=== PATIENT | female | born 1985 | race Caucasian/White ===

== ENCOUNTER 2018-03-30 18:46 | Emergency (ER) | payer OTHER ==
[~2018-03-30] VITALS: Ht 175.3 cm; Wt 96.2 kg
[~2018-03-30 18:46] MED LIST: AMOX500C PO
[2018-03-30 20:47] LABS: BILIRUBIN,URINE NEG (NEG); CLARITY,URINE CLOUDY; COLOR,URINE YELLOW; GLUCOSE,URINE NEG (NEG)
[2018-03-30 20:48] LABS: BACTERIA,URINE 0 /HPF (0-FEW); NITRITE,URINE NEG (NEG); RBC,URINE OCC /HPF (0-2); SQUAMOUS EPITHELIAL CELL,UR MOD /LPF; UROBILINOGEN,URINE 0.2 mg/dL (0.2 mg/dL)
[2018-03-30] MEDS ORDERED: SUCR1TAB PO (20:48)
--- NOTE | 2018-03-30 20:48 | PHYS DOC ---
Past History Past Medical History: GERD, Hypertension Past Surgical History: Alcohol Use: None Drug Use: None Adult General Chief Complaint Chief Complaint: ABDOMINAL PAIN HPI HPI Patient is a 32 year old female who presents with complaint of intermittent right-sided abdominal pain. Patient states that she has been having similar symptoms over the course of the past year. The patient states that her pain comes and goes. The patient states she recently saw her primary doctor who did blood work and found mildly elevated liver enzymes. The patient had in outpatient ultrasound completed which showed no evidence of gallbladder disease but did reveal evidence of fatty liver disease. This was communicated to the patient as a cause of her elevated liver enzymes. Patient however states she is not sure why she is still having recurrent pain. Patient states that the pain does not have any known exacerbating or alleviating factors. Patient describes the pain as a dull ache in the middle of her upper abdomen and also in her right upper quadrant. The patient states currently her pain is much better. Patient came to the emergency department as she was experiencing pain earlier today and could not see her primary doctor. Patient denies any fevers. Patient has had associated nausea but no vomiting and denies any bloody stools. Patient has not taken any medications for her symptoms. Review of Systems Review of Systems Constitutional: Denies fever or chills [] Eyes: Denies change in visual acuity, redness, or eye pain [] HENT: Denies nasal congestion or sore throat [] Respiratory: Denies cough or shortness of breath [] Cardiovascular: Denies chest pain or edema[] GI: Abdominal pain, nausea, denies vomiting, bloody stools or diarrhea [] : Denies dysuria or hematuria [] Musculoskeletal: Denies back pain or joint pain [] Integument: Denies rash or skin lesions [] Neurologic: Denies headache, focal weakness or sensory changes [] All other systems were reviewed and found to be within normal limits, except as documented in this note. Allergies Allergies Allergies Coded Allergies Type Severity Reaction Last Updated Verified No Known Drug Allergies 10/31/14 No Physical Exam Physical Exam Constitutional: Well developed, well nourished, no acute distress, non-toxic appearance. [] HENT: Normocephalic, atraumatic, bilateral external ears normal, oropharynx moist, no oral exudates, nose normal. [] Eyes: PERRLA, EOMI, conjunctiva normal, no discharge. [] Neck: Normal range of motion, no tenderness, supple, no stridor. [] Cardiovascular:Heart rate regular rhythm, no murmur [] Lungs & Thorax: Bilateral breath sounds clear to auscultation [] Abdomen: Bowel sounds normal, soft, no tenderness, no masses, no pulsatile masses. [] Skin: Warm, dry, no erythema, no rash. [] Back: No tenderness, no CVA tenderness. [] Extremities: No tenderness, no cyanosis, no clubbing, ROM intact, no edema. [] Neurologic: Alert and oriented X 3, normal motor function, normal sensory function, no focal deficits noted. [] Current Patient Data Vital Signs Vital Signs Date Time Temp Pulse Resp B/P (MAP) Pulse Ox O2 Delivery O2 Flow Rate FiO2 03/30/18 19:03 98.6 89 20 100 Room Air Lab Results Laboratory Tests Test 03/30/18 18:37 POC Urine HCG, Qualitative hcg negative (Negative) EKG EKG Not performed[] Radiology/Procedures Radiology/Procedures Not performed[] Course & Med Decision Making Course & Med Decision Making Pertinent Labs and Imaging studies reviewed. (See chart for details) The patient's problem appears to be chronic in nature. The patient has had recent blood work and ultrasound imaging which did not reveal an acute source of the patient's symptoms. I suspect that the patient may have an undiagnosed intraluminal GI disorder and would benefit from consultation with a word processor. The patient is appropriate for outpatient follow-up at this time. Spoke with the patient regarding recommendations and she voiced agreement. The patient will be referred to Dr. Chinchilla for follow-up in one week. Advised to continue on omeprazole and patient was prescribed sucralfate to take with meals to see if this will help reduce the patient's pain exacerbations. Advised return emergency department for any worsening symptoms. Patient was understanding and in agreement with treatment plan.[] Dragon Disclaimer Dragon Disclaimer This electronic medical record was generated, in whole or in part, using a voice recognition dictation system. Departure Departure: Impression: Primary Impression: Chronic abdominal pain Disposition: HOME, SELF-CARE Condition: GOOD Referrals: IVANA MATAMOROS PA-C (PCP) ANASTASIYA CHINCHILLA MD Patient Instructions: Abdominal Pain (Nonspecific) Additional Instructions: Call the office of Dr. Chinchilla and schedule an appointment in the next 1-2 weeks for outpatient gastroenterology evaluation. Return to the emergency department for any worsening symptoms. Scripts Sucralfate (SUCRALFATE) 1 Gm Tablet 1 TAB PO QID, #120 TAB 0 Refills Prov: JAY HURTADO MD 03/30/18 JAY HURTADO MD March 30, 2018 20:48
[2018-03-30 20:50] VITALS: BP 119/78
== END 2018-03-30 20:51 | disposition home or self-care (01) ==
LOC: ER 18:46
DX: G89.29 Other chronic pain (principal); R10.11 Right upper quadrant pain; K21.9 Gastro-esophageal reflux disease without esophagitis; I10 Essential (primary) hypertension
CPT/HCPCS: 81001; 81025; 87086; 99284

== ENCOUNTER 2018-08-22 09:15 | Emergency (ER) | payer SELFPAY ==
[~2018-08-22] VITALS: Ht 175.3 cm; Wt 96.2 kg
[~2018-08-22 09:15] MED LIST changes: +SUCR1TAB PO
--- NOTE | 2018-08-22 11:06 | EKG ---
[address] [address] Test Date: 2018-08-22 Test Time: 11:01:56 Pat Name: NAVI WU Department: Room: Gender: F [employer]: : 1985 Requested By: STU MCKAY Order Number: [id number] Reading MD: Mervin Alcocer MD Measurements Intervals [place] Rate: 65 P: 34 ND: 132 QRS: 18 QRSD: 82 T: 30 QT: 404 QTc: 425 Interpretive Statements SINUS RHYTHM Electronically Signed On 08-25-2018 12:14:27 CDT by Mervin Alcocer MD
--- NOTE | 2018-08-22 11:07 | RAD ---
EXAM: CT HEAD WITHOUT CONTRAST. HISTORY: Headache, dizziness. TECHNIQUE: Computed tomography of the head was performed without intravenous contrast. COMPARISON: None. FINDINGS: There is no intracranial hemorrhage. Arnold-white differentiation is preserved. The ventricles are normal in size and position. There is a small mucus retention cyst in the right maxillary sinus. The orbits are unremarkable. The temporal bones are unremarkable. The calvarium reveals no suspicious lesions. IMPRESSION: 1. No acute intracranial findings. *One or more of the following individualized dose reduction techniques were utilized for this examination: 1. Automated exposure control. 2. Adjustment of the mA and/or kV according to patient size. 3. Use of iterative reconstruction technique. Electronically signed by: Cady Reddy MD (08/22/2018 11:04 AM) [facility]
[2018-08-22 11:24] LABS: BASO % 1 % (0-3); EOS # 0.1 x10^3/uL (0.0-0.7); EOS % 1 % (0-3); HEMATOCRIT 41.3 % (36.0-47.0); HEMOGLOBIN 14.4 g/dL (12.0-15.5); LYMPH # 2.4 x10^3/uL (1.0-4.8); LYMPH % 31 % (24-48); MEAN CORPUSCULAR HEMOGLOBIN 28 pg (25-35); MEAN CORPUSCULAR HGB CONC 35 g/dL (31-37); MEAN CORPUSCULAR VOLUME 80 fL (79-100); MONO # 0.7 x10^3/uL (0.0-1.1); MONO % 9 % (0-9); NEUT # 4.6 x10^3uL (1.8-7.7); NEUT % 59 % (31-73); PLATELET COUNT 273 x10^3/uL (140-400); RED BLOOD COUNT 5.19 x10^6/uL (3.50-5.40); RED CELL DISTRIBUTION WIDTH 13.5 % (11.5-14.5); WHITE BLOOD COUNT 7.7 x10^3/uL (4.0-11.0)
[2018-08-22 11:29] LABS: AMPHETAMINE/METHAMPHETAMINE NEG (NEG); BARBITURATES NEG (NEG); BENZODIAZEPINES NEG (NEG); CANNABINOIDS NEG (NEG); COCAINE NEG (NEG); METHADONE NEG (NEG); OPIATES NEG (NEG); PHENCYCLIDINE NEG (NEG)
[2018-08-22 11:31] LABS: BILIRUBIN,URINE NEG (NEG); CLARITY,URINE CLEAR; COLOR,URINE YELLOW; GLUCOSE,URINE NEG (NEG)
[2018-08-22 11:32] LABS: BACTERIA,URINE MOD /HPF (0-FEW); NITRITE,URINE NEG (NEG); RBC,URINE 0 /HPF (0-2); SQUAMOUS EPITHELIAL CELL,UR MANY /LPF; UROBILINOGEN,URINE 0.2 mg/dL (0.2 mg/dL); WBC,URINE RARE /HPF (0-4)
[2018-08-22 11:36] LABS: ALBUMIN/GLOBULIN RATIO 1.2 (1.0-1.7); CALCIUM 9.8 mg/dL (8.5-10.1); CREATININE 0.8 mg/dL (0.6-1.0); GFR 83.7; TOTAL BILIRUBIN 0.3 mg/dL (0.2-1.0); TOTAL PROTEIN 7.4 g/dL (6.4-8.2)
[2018-08-22] MEDS ORDERED: MECL25TA3 PO (12:08)
--- NOTE | 2018-08-22 12:08 | PHYS DOC ---
Past History Past Medical History: Anxiety, GERD, Hypertension Past Surgical History: Alcohol Use: None Drug Use: None Adult General Chief Complaint Chief Complaint: DIZZY/LIGHT HEADED HPI HPI Patient is a 33 year old female who presents with complaining of dizziness for 3 weeks intermittently usually happens with change of the position last for a few seconds to a few minutes without headache, blurred vision, chest pain and shortness of breath, tinnitus and change of hearing. Patient states that primary care physician changed her blood pressure medication recently for treatment of her dizziness doesn't change of her dizziness. Patient stated that she could have asthma but because of she lost her Medicaid coverage quadrant seen by her doctor anymore and wanted to have check up for possible asthma and treatment of dizziness. Review of Systems Review of Systems Constitutional: Denies fever or chills [] Eyes: Denies change in visual acuity, redness, or eye pain [] HENT: Denies nasal congestion or sore throat [] Respiratory: Denies cough or shortness of breath [] Cardiovascular: No additional information not addressed in HPI [] GI: Denies abdominal pain, nausea, vomiting, bloody stools or diarrhea [] : Denies dysuria or hematuria [] Musculoskeletal: Denies back pain or joint pain [] Integument: Denies rash or skin lesions [] Neurologic: Denies headache, focal weakness or sensory changes [] Endocrine: Denies polyuria or polydipsia [] All other systems were reviewed and found to be within normal limits, except as documented in this note. Allergies Allergies Allergies Coded Allergies Type Severity Reaction Last Updated Verified No Known Drug Allergies 10/31/14 No Physical Exam Physical Exam Constitutional: Well developed, well nourished, no acute distress, non-toxic appearance, anxious. [] HENT: Normocephalic, atraumatic, bilateral external ears normal, oropharynx moist, no oral exudates, nose normal. [] Eyes: PERRLA, EOMI, conjunctiva normal, no discharge. [] Neck: Normal range of motion, no tenderness, supple, no stridor. [] Cardiovascular:Heart rate regular rhythm, no murmur [] Lungs & Thorax: Bilateral breath sounds clear to auscultation [] Abdomen: Bowel sounds normal, soft, no tenderness, no masses, no pulsatile masses. [] Skin: Warm, dry, no erythema, no rash. [] Back: No tenderness, no CVA tenderness. [] Extremities: No tenderness, no cyanosis, no clubbing, ROM intact, no edema. [] Neurologic: Alert and oriented X 3, normal motor function, normal sensory function, no focal deficits noted. [] Psychologic: Affect anxious, judgement normal, mood normal. [] Current Patient Data Vital Signs Vital Signs Date Time Temp Pulse Resp B/P (MAP) Pulse Ox O2 Delivery O2 Flow Rate FiO2 08/22/18 11:25 72 18 130/90 (103) 100 Room Air 08/22/18 10:09 98.1 Lab Results Laboratory Tests Test 08/22/18 11:09 White Blood Count 7.7 x10^3/uL (4.0-11.0) Red Blood Count 5.19 x10^6/uL (3.50-5.40) Hemoglobin 14.4 g/dL (12.0-15.5) Hematocrit 41.3 % (36.0-47.0) Mean Corpuscular Volume 80 fL (79-100) Mean Corpuscular Hemoglobin 28 pg (25-35) Mean Corpuscular Hemoglobin Concent 35 g/dL (31-37) Red Cell Distribution Width 13.5 % (11.5-14.5) Platelet Count 273 x10^3/uL (140-400) Neutrophils (%) (Auto) 59 % (31-73) Lymphocytes (%) (Auto) 31 % (24-48) Monocytes (%) (Auto) 9 % (0-9) Eosinophils (%) (Auto) 1 % (0-3) Basophils (%) (Auto) 1 % (0-3) Neutrophils # (Auto) 4.6 x10^3uL (1.8-7.7) Lymphocytes # (Auto) 2.4 x10^3/uL (1.0-4.8) Monocytes # (Auto) 0.7 x10^3/uL (0.0-1.1) Eosinophils # (Auto) 0.1 x10^3/uL (0.0-0.7) Basophils # (Auto) 0.0 x10^3/uL (0.0-0.2) Urine Collection Type Unknown Urine Color Yellow Urine Clarity Clear Urine pH 8.0 Urine Specific [place] 1.020 Urine Protein Neg (NEG-TRACE) Urine Glucose (UA) Neg mg/dL (NEG) Urine Ketones (Stick) Neg mg/dL (NEG) Urine Blood Neg (NEG) Urine Nitrite Neg (NEG) Urine Bilirubin Neg (NEG) Urine Urobilinogen Dipstick 0.2 mg/dL (0.2 mg/dL) Urine Leukocyte Esterase Neg (NEG) Urine RBC 0 /HPF (0-2) Urine WBC Rare /HPF (0-4) Urine Squamous Epithelial Cells Many /LPF Urine Bacteria Mod /HPF (0-FEW) Sodium Level 138 mmol/L (136-145) Potassium Level 4.0 mmol/L (3.5-5.1) Chloride Level 102 mmol/L (98-107) Carbon Dioxide Level 31 mmol/L (21-32) Anion Gap 5 (6-14) L Blood Urea Nitrogen 9 mg/dL (7-20) Creatinine 0.8 mg/dL (0.6-1.0) Estimated GFR (Cockcroft-Gault) 83.7 BUN/Creatinine Ratio 11 (6-20) Glucose Level 92 mg/dL (70-99) Calcium Level 9.8 mg/dL (8.5-10.1) Magnesium Level 2.0 mg/dL (1.8-2.4) Total Bilirubin 0.3 mg/dL (0.2-1.0) Aspartate Amino Transferase (AST) 51 U/L (15-37) H Alanine Aminotransferase (ALT) 74 U/L (14-59) H Alkaline Phosphatase 85 U/L (46-116) Troponin I Quantitative < 0.017 ng/mL (0-0.055) Total Protein 7.4 g/dL (6.4-8.2) Albumin 4.0 g/dL (3.4-5.0) Albumin/Globulin Ratio 1.2 (1.0-1.7) Urine Opiates Screen Neg (NEG) Urine Methadone Screen Neg (NEG) Urine Barbiturates Neg (NEG) Urine Phencyclidine Screen Neg (NEG) Urine Amphetamine/Methamphetamine Neg (NEG) Urine Benzodiazepines Screen Neg (NEG) Urine Cocaine Screen Neg (NEG) Urine Cannabinoids Screen Neg (NEG) Urine Ethyl Alcohol Neg (NEG) EKG EKG EKG interpreted by me. EKG at 1101 showed normal sinus rhythm at rate of 65, no acute distress and fever abnormalities Radiology/Procedures Radiology/Procedures [address] [address] IMAGING REPORT Signed PATIENT: NAVI WU ACCOUNT: [id number] : 1985 LOCATION: ER AGE: 33 SEX: F EXAM STATUS: REG ER ORD. PHYSICIAN: STU MCKAY MD REASON: dizziness PROCEDURE: CT HEAD WO CONTRAST EXAM: CT HEAD WITHOUT CONTRAST. HISTORY: Headache, dizziness. TECHNIQUE: Computed tomography of the head was performed without intravenous contrast. COMPARISON: None. FINDINGS: There is no intracranial hemorrhage. Arnold-white differentiation is preserved. The ventricles are normal in size and position. There is a small mucus retention cyst in the right maxillary sinus. The orbits are unremarkable. The temporal bones are unremarkable. The calvarium reveals no suspicious lesions. IMPRESSION: 1. No acute intracranial findings. *One or more of the following individualized dose reduction techniques were utilized for this examination: 1. Automated exposure control. 2. Adjustment of the mA and/or kV according to patient size. 3. Use of iterative reconstruction technique. Electronically signed by: Cady Reddy MD (08/22/2018 11:04 AM) [facility] DICTATED AND SIGNED BY: TRU REDDY MD DATE: 08/22/18 1101 CC: STU MCKAY MD; IVANA MATAMOROS PA-C ~ Course & Med Decision Making Course & Med Decision Making Pertinent Labs and Imaging studies reviewed. (See chart for details) [discharge: I've spoken with the patient and/or caregivers. I've explained the patient's condition, diagnosis and treatment plan based on information available to me at this time. I've answered the patient's and/or caregivers questions and addressed any concerns. The patient and/or caregivers have a good understanding the patient's diagnosis, condition and treatment plan as can be expected at this point. Vital signs have been stabilized. The patient's condition is stable for discharge from the emergency department. The patient will pursue further outpatient evaluation with her primary care provider or other designated consulting physician as outlined in the discharge instructions. Patient and/or caregivers are agreeable to this plan of care and follow-up instructions have been explained in detail. The patient and/or caregivers have received these instructions in written format and expressed understanding of these discharge instructions. The patient and her caregivers are aware that if any significant change in condition or worsening of symptoms should prompt him to immediately return to this of the closest emergency department. If an emergent department is not readily available I would encourage him to call 911. Heide Disclaimer Dragon Disclaimer This electronic medical record was generated, in whole or in part, using a voice recognition dictation system. Departure Departure: Impression: Primary Impression: Positional vertigo Additional Impressions: Anxiety Hypertension Disposition: HOME, SELF-CARE (at 1205) Condition: STABLE Referrals: IVANA MATAMOROS PA-C (PCP) Patient Instructions: Benign Positional Vertigo Additional Instructions: Drink plenty of liquids Follow-up with your primary care physician in 3-5 days Return to ER if not getting better Scripts Meclizine Hcl (MECLIZINE HCL) 25 Mg Tablet 1 TAB PO PRN TID, #30 TAB Prov: STU MCKAY MD 08/22/18 Problem Qualifiers STU MCKAY MD Aug 22, 2018 12:08
[2018-08-22 12:26] VITALS: BP 131/76
== END 2018-08-22 12:28 | disposition home or self-care (01) ==
LOC: ER 09:15
DX: R42 Dizziness and giddiness (principal); F41.9 Anxiety disorder, unspecified; I10 Essential (primary) hypertension; K21.9 Gastro-esophageal reflux disease without esophagitis
CPT/HCPCS: 36415; 70450; 80053; 80307; 81001; 83735; 84484; 85025; 87086; 93005; 99285-25; G0479

== ENCOUNTER → 2019-02-09 | Outpatient (CLI) | payer BC ==
[~2019-02-09] MED LIST changes: +MECL25TA3 PO
--- NOTE | 2019-02-09 13:36 | RAD ---
DATE: 02/09/2019 EXAM: MAMMO MILKA LEONARDO, left breast ultrasound HISTORY: Left breast pain, possible nodule COMPARISON: Baseline study This study was interpreted with the benefit of Computerized Aided Detection (CAD). Breast Density: SCATTERED The breast parenchyma shows scattered fibroglandular densities. Breast parenchyma level B. FINDINGS: 2-D and 3-D tomosynthesis imaging was performed in CC and MLO projections. There is a 3.5 cm smooth superficial nodule at the 12:00 location in the left breast. It is of low density centrally suggesting that this is an oil cyst or fat containing intramammary lymph node. No suspicious breast density is seen. A BB was placed on the skin surface over the area of palpable concern along the inferior aspect of the left breast. No underlying abnormality is detected. No microcalcifications are seen. Left breast ultrasound, 02/09/2019: A targeted ultrasound exam of the area of concern in the inferior aspect of the left breast was performed. Heterogeneous fibroglandular shadows are present. No solid mass or unusual fluid collection is seen. IMPRESSION: 1. There is no mammographic evidence of malignancy in either breast. 2. A targeted ultrasound exam of the inferior aspect of the left breast reveals no abnormality. Clinical surveillance is suggested. BI-RADS CATEGORY: 2 BENIGN FINDING(S) RECOMMENDED FOLLOW-UP: CLIN FOLLOW UP IMAGING CLINICALLY INDICATED PQRS compliance statement: Patient information was entered into a reminder system with a target due date for the next mammogram. Mammography is a sensitive method for finding small breast cancers, but it does not detect them all and is not a substitute for careful clinical examination. A negative mammogram does not negate a clinically suspicious finding and should not result in delay in biopsying a clinically suspicious abnormality. "Our facility is accredited by the [employer] Mammography Program."
== END | disposition home or self-care (01) ==
LOC: MAMMO 12:08
PROVIDERS: ATTEND Physician Assistant Medical
DX: N63.20 Unspecified lump in the left breast, unspecified quadrant (principal); N64.4 Mastodynia
CPT/HCPCS: 76641; 77066; G0279; 77062

== ENCOUNTER 2020-03-16 18:20 | Emergency (ER) | payer BC ==
[~2020-03-16] VITALS: Ht 175.3 cm; Wt 96.8 kg
[~2020-03-16 18:20] MED LIST changes: +MECL-75 PO; -MECL25TA3 PO
--- NOTE | 2020-03-16 19:15 | PHYS DOC ---
Past History Past Medical History: Anxiety, GERD, Hypertension Past Surgical History: Smoking: Non-smoker Alcohol Use: None Drug Use: None General Adult EDM: Chief Complaint: ANXIETY/PANIC ATTACK HPI: HPI: Patient is a 34 year old female who presents for evaluation of chest tightness, throat tightness and shortness of air. Patient has been very anxious recently. She furthermore has had recurrent episodes of palpitations. Onset of symptoms over the past 3 weeks. She states she had tried to contact a veterinary technology instructor but was told to come to the hospital. Patient denies any known exposure to a person with COVID. Vital signs were stable. Risk factors include hypertension and p atient does take hydrochlorothiazide. Review of Systems: Review of Systems: Constitutional: Denies fever or chills Eyes: Denies change in visual acuity HENT: Denies nasal congestion or sore throat Respiratory: Denies cough has mild shortness of breath Cardiovascular: Intermittent chest pain no edema GI: Denies abdominal pain, nausea, vomiting, bloody stools or diarrhea : Denies dysuria Musculoskeletal: Denies back pain or joint pain Integument: Denies rash Neurologic: Denies headache, focal weakness or sensory changes Endocrine: Denies polyuria or polydipsia Lymphatic: Denies swollen glands Psychiatric: Has anxiety Heart Score: Risk Factors: Risk Factors: DM, Current or recent (<one month) smoker, HTN, HLP, family history of CAD, obesity. Risk Scores: Score 0 - 3: 2.5% MACE over next 6 weeks - Discharge Home Score 4 - 6: 20.3% MACE over next 6 weeks - Admit for Clinical Observation Score 7 - 10: 72.7% MACE over next 6 weeks - Early Invasive Strategies Allergies: Allergies: Allergies Coded Allergies Type Severity Reaction Last Updated Verified No Known Drug Allergies 10/31/14 No Physical Exam: PE: Constitutional: Well developed, well nourished, mild acute distress, non-toxic appearance. [] HENT: Normocephalic, atraumatic, bilateral external ears normal, oropharynx moist, no oral exudates, nose normal. [] Eyes: PERRL, EOMI, conjunctiva normal, no discharge. [] Neck: Normal range of motion, no tenderness, supple, no stridor. [] Cardiovascular:Heart rate regular rhythm, no murmur [] Lungs & Thorax: Bilateral breath sounds clear to auscultation [] Abdomen: Bowel sounds normal, soft, no tenderness, no masses, no pulsatile masses. [] Skin: Warm, dry, no erythema, no rash. [] Back: No tenderness, no CVA tenderness. [] Extremities: No tenderness, no cyanosis, no clubbing, ROM intact, no edema. [] Neurologic: Alert and oriented X 3, normal motor function, normal sensory function, no focal deficits noted. [] Psychologic: moderately anxious. [] Current Patient Data: Labs: Laboratory Tests Test 03/16/20 19:05 White Blood Count 7.6 x10^3/uL Red Blood Count 5.02 x10^6/uL Hemoglobin 13.2 g/dL Hematocrit 39.4 % Mean Corpuscular Volume 78 fL Mean Corpuscular Hemoglobin 26 pg Mean Corpuscular Hemoglobin Concent 34 g/dL Red Cell Distribution Width 15.4 % Platelet Count 268 x10^3/uL Neutrophils (%) (Auto) 62 % Lymphocytes (%) (Auto) 30 % Monocytes (%) (Auto) 7 % Eosinophils (%) (Auto) 1 % Basophils (%) (Auto) 0 % Neutrophils # (Auto) 4.7 x10^3uL Lymphocytes # (Auto) 2.3 x10^3/uL Monocytes # (Auto) 0.6 x10^3/uL Eosinophils # (Auto) 0.0 x10^3/uL Basophils # (Auto) 0.0 x10^3/uL Sodium Level 140 mmol/L Potassium Level 3.3 mmol/L Chloride Level 101 mmol/L Carbon Dioxide Level 28 mmol/L Anion Gap 11 Blood Urea Nitrogen 11 mg/dL Creatinine 0.9 mg/dL Estimated GFR (Cockcroft-Gault) 72.6 BUN/Creatinine Ratio 12 Glucose Level 118 mg/dL Calcium Level 9.6 mg/dL Total Bilirubin 0.3 mg/dL Aspartate Amino Transf (AST/SGOT) 44 U/L Alanine Aminotransferase (ALT/SGPT) 62 U/L Alkaline Phosphatase 87 U/L Troponin I Quantitative < 0.017 ng/mL Total Protein 7.7 g/dL Albumin 3.9 g/dL Albumin/Globulin Ratio 1.0 EKG: EKG: EKG: NSR rate 71, LAD, not STEMI read at 1914 Radiology/Procedures: Radiology/Procedures: [address] [address] IMAGING REPORT Signed PATIENT: NAVI WU LACCOUNT: [id number] : 1985 LOCATION: ER AGE: 34 SEX: F EXAM STATUS: REG ER ORD. PHYSICIAN: ADAN MALLORY DO REASON: short of air PROCEDURE: CHEST AP ONLY EXAM: AP View of the chest DATE: 03/16/2020 7:05 PM INDICATION: Shortness of air COMPARISON: No Prior FINDINGS: The heart is not enlarged. Mediastinal and hilar contours are normal. Linear opacities left lung base likely scarring/atelectasis. No pleural effusion or pneumothorax. IMPRESSION: 1. No radiographic evidence for acute cardiopulmonary process. Electronically signed by: Mahendra Owusu MD (03/16/2020 8:36 PM) [facility] DICTATED AND SIGNED BY: MAHENDRA OWUSU MD DATE: 03/16/202035 CC: IVANA MATAMOROS PA-C; ADAN MALLORY DO ~ Course & Med Decision Making: Course & Med Decision Making Pertinent Labs and Imaging studies reviewed. (See chart for details) Patient reassessed and is medically stable. Emergency part work-up unremarkable including chest x-ray and lab work. Etiology of her symptoms may relate to anxiety. Patient is currently in a normal sinus rhythm. Considerations included rhythm disturbance, electrolyte disturbance, blood sugar issue etc. Patient has a steady gait with no focal deficits or lateralizing signs at discharge [] Dragon Disclaimer: Dragpatricia Disclaimer: This electronic medical record was generated, in whole or in part, using a voice recognition dictation system. Departure Departure: Impression: Primary Impression: Heart palpitations Additional Impression: Anxiety Disposition: 01 HOME, SELF-CARE Condition: STABLE Referrals: IVANA MATAMOROS PA-C (PCP) Patient Instructions: Anxiety and Panic Attacks, Palpitations Additional Instructions: Call your veterinary technology instructor and be seen as soon as possible. You may need an outpatient Holter monitor. Emergency department work-up including chest x-ray, EKG and lab work was normal. Avoid caffeine or stimulants, get plenty of sleep and rest ADAN MALLORY DO March 16, 2020 19:15
[2020-03-16 19:59] LABS: BASO % 0 % (0-3); EOS % 1 % (0-3); HEMATOCRIT 39.4 % (36.0-47.0); HEMOGLOBIN 13.2 g/dL (12.0-15.5); LYMPH # 2.3 x10^3/uL (1.0-4.8); LYMPH % 30 % (24-48); MEAN CORPUSCULAR HEMOGLOBIN 26 pg (25-35); MEAN CORPUSCULAR HGB CONC 34 g/dL (31-37); MEAN CORPUSCULAR VOLUME 78 fL (79-100); MONO # 0.6 x10^3/uL (0.0-1.1); MONO % 7 % (0-9); NEUT # 4.7 x10^3uL (1.8-7.7); NEUT % 62 % (31-73); PLATELET COUNT 268 x10^3/uL (140-400); RED BLOOD COUNT 5.02 x10^6/uL (3.50-5.40); RED CELL DISTRIBUTION WIDTH 15.4 % (11.5-14.5); WHITE BLOOD COUNT 7.6 x10^3/uL (4.0-11.0)
[2020-03-16 20:09] LABS: CALCIUM 9.6 mg/dL (8.5-10.1); CREATININE 0.9 mg/dL (0.6-1.0); GFR 72.6; POTASSIUM 3.3 mmol/L (3.5-5.1)
[2020-03-16 20:15] LABS: ALBUMIN 3.9 g/dL (3.4-5.0); TOTAL BILIRUBIN 0.3 mg/dL (0.2-1.0); TOTAL PROTEIN 7.7 g/dL (6.4-8.2)
--- NOTE | 2020-03-16 20:39 | RAD ---
EXAM: AP View of the chest DATE: 03/16/2020 7:05 PM INDICATION: Shortness of air COMPARISON: No Prior FINDINGS: The heart is not enlarged. Mediastinal and hilar contours are normal. Linear opacities left lung base likely scarring/atelectasis. No pleural effusion or pneumothorax. IMPRESSION: 1. No radiographic evidence for acute cardiopulmonary process. Electronically signed by: Mahendra Jeter MD (03/16/2020 8:36 PM) [facility]
[2020-03-16 21:39] VITALS: BP 127/89
--- NOTE | 2020-03-17 11:53 | EKG ---
[address] [address] Test Date: 2020-03-16 Test Time: 19:11:22 Pat Name: NAVI WU Department: Room: Gender: F Statement Processor: ORQUIDEA : 1985 Requested By: ADAN MALLORY Order Number: [id number] Reading MD: Jacobo Acosta Measurements Intervals [place] Rate: 71 P: 41 SD: 140 QRS: 7 QRSD: 82 T: 32 QT: 396 QTc: 435 Interpretive Statements SINUS RHYTHM NORMAL ECG Electronically Signed On 03-19-2020 8:45:46 CDT by Jacobo Acosta
== END 2020-03-16 21:40 | disposition home or self-care (01) ==
LOC: ER 18:20
DX: R00.2 Palpitations (principal); F41.9 Anxiety disorder, unspecified; R07.89 Other chest pain; K21.9 Gastro-esophageal reflux disease without esophagitis; I10 Essential (primary) hypertension
CPT/HCPCS: 36415; 71045; 80053; 84484; 85025; 93005; 99285

== ENCOUNTER → 2020-05-08 | Outpatient (CLI) | payer BC ==
--- NOTE | 2020-05-08 16:11 | CARD ---
MR#: [id number] Date of Study: 05/08/2020 Ordering Physician: IRVIN MOYER, Referring Physician: IRVIN MOYER Tech: Ileana Alves RDCS APPROVED REPORT EXAM: Two-dimensional and M-mode echocardiogram with Doppler and color Doppler. Other Information Quality : Good INDICATION Palpitations 2D DIMENSIONS RVDd2.9 (2.9-3.5cm)Left Atrium(2D)3.9 (1.6-4.0cm) IVSd0.9 (0.7-1.1cm)Aortic Root(2D)3.2 (2.0-3.7cm) LVDd4.8 (3.9-5.9cm)LVOT Diameter2.0 (1.8-2.4cm) PWd0.8 (0.7-1.1cm)LVDs2.6 (2.5-4.0cm) FS (%) 30.0 %SV82.8 ml LVEF(%)60.0 (>50%) Aortic Valve AoV Peak Lg.137.5cm/sAoV VTI26.0cm AO Peak GR.7.6mmHgLVOT Peak Lg.162.1cm/s LVOT VTI 28.76cmAO Mean GR.4mmHg FREDDIE (VMAX)3.05kg8QRU (VTI)3.56cm2 Mitral Valve MV E Nkxkpswq748.5cm/sMV DECEL [id number] MV A Yalrecqm08.6cm/sE/A Ratio1.4 Tricuspid Valve TR P. Kvyrnufd485pa/sRAP QPDBPYVS8srGk TR Peak Gr.29egVuWAWB72cyLc Pulmonary Vein S1 Oeibqjrg20.3cm/sD2 Dpdeljcf72.0cm/s LEFT VENTRICLE The left ventricle is normal size. There is normal left ventricular wall thickness. The left ventricu lar systolic function is normal and the ejection fraction is within normal range. The Ejection Fracti on is 55-60%. There is normal LV segmental wall motion. The left ventricular diastolic function and f illing is normal for age. RIGHT VENTRICLE The right ventricle is normal size. The right ventricular systolic function is normal. ATRIA The left atrium size is normal. The right atrium size is normal. The interatrial septum is intact wit h no evidence for an atrial septal defect or patent foramen ovale as noted on 2-D or Doppler imaging. AORTIC VALVE The aortic valve is normal in structure and function. Doppler and Color Flow revealed no significant aortic regurgitation. There is no significant aortic valvular stenosis. MITRAL VALVE The mitral valve is normal in structure and function. There is no evidence of mitral valve prolapse. There is no mitral valve stenosis. Doppler and Color-flow revealed trace mitral regurgitation. TRICUSPID VALVE The tricuspid valve is normal in structure and function. Doppler and Color Flow revealed trace tricus pid regurgitation. The PA pressure was estimated at 31 mmHg. There is no tricuspid valve stenosis. PULMONIC VALVE The pulmonic valve is not well visualized. Doppler and Color Flow revealed no pulmonic valvular regur gitation. There is no pulmonic valvular stenosis. GREAT VESSELS The aortic root is normal in size. The ascending aorta is normal in size. The IVC is normal in size a nd collapses >50% with inspiration. PERICARDIAL EFFUSION There is no evidence of significant pericardial effusion. Critical Notification Critical Value: No <Conclusion> The left ventricle is normal size. The left ventricular systolic function is normal and the ejection fraction is within normal range. The Ejection Fraction is 55-60%. There is normal left ventricular wall thickness. Doppler and Color Flow revealed no significant aortic regurgitation. There is no significant aortic valvular stenosis. Doppler and Color-flow revealed trace mitral regurgitation. Doppler and Color Flow revealed trace tricuspid regurgitation. The PA pressure was estimated at 31 mmHg. Signed by : Deep Vega MD Electronically Approved : 05/08/2020 16:11:25
== END | disposition home or self-care (01) ==
LOC: ECHO 14:36
PROVIDERS: ATTEND Internal Medicine Cardiovascular Disease
DX: R00.2 Palpitations (principal)
CPT/HCPCS: 93306